=== PATIENT | female | born 1980 | race Two or more races ===

== ENCOUNTER 2019-05-11 15:37 | Emergency (ER) | payer OTHER ==
--- NOTE | 2019-05-11 16:33 | PDOC ---
History of Present Illness - General Chief Complaint: Chest Pain Stated Complaint: CP Time Seen by Provider: 05/11/19 15:52 - History of Present Illness Initial Comments: The pt is a 38F w/ a history of bipolar disorder (seroquel) who presents for evaluation of auditory hallucinations and right sided chest pain. The pain is ' not too bad', non-radiating, constant since yesterday, worse with touch, and not alleviated by the Naproxen that she tried earlier today. The pt has not had pain like this before, denies OCPs, denies history of DVT/PE, denies recent travel. She states that she was hearing voices in her apartment, did not feel safe there anymore, and was found wandering by either EMS or another person who called EMS. The pt denies fevers/chills, trouble breathing, N/V, abdominal pain, or changes in sensation. Denies SI/HI. 05/11/19 16:28 Past History - Past Medical History Allergies/Adverse Reactions: Allergies Allergy/AdvReac Type Severity Reaction Status Date / Time No Known Allergies Allergy Verified 05/11/19 16:47 Home Medications: Ambulatory Orders Quetiapine Fumarate [Seroquel -] 25 mg PO HS 05/11/19 Review of Systems - Review of Systems Able to Perform ROS?: Yes Comments:: GENERAL/CONSTITUTIONAL: No fever or chills HEAD, EYES, EARS, NOSE AND THROAT: No change in vision. No change in hearing. No sore throat CARDIOVASCULAR: No shortness of breath RESPIRATORY: Denies cough, hemoptysis GASTROINTESTINAL: No nausea, vomiting, diarrhea or constipation GENITOURINARY: No dysuria, frequency, or change in urination MUSCULOSKELETAL: No joint or muscle swelling or pain. No neck or back pain SKIN: No rash NEUROLOGIC: No headache, vertigo, loss of consciousness, or change in strength/ sensation ENDOCRINE: No increased thirst. No abnormal weight change HEMATOLOGIC/LYMPHATIC: No anemia, easy bleeding, or history of blood clots ALLERGIC/IMMUNOLOGIC: No hives or skin allergy PSYCH: Denies SI;HI; Endorses AH; Denies VH 05/11/19 16:27 Is the patient limited [place] proficient: No *Physical Exam - Vital Signs 05/11/19 16:35 - Physical Exam GENERAL: Awake, alert, and oriented to person/place/time, appears tearful HEAD: No signs of trauma, normocephalic, atraumatic EYES: PERRLA, EOMI, sclera anicteric, conjunctiva clear ENT: Hearing grossly normal, nares patent, oropharynx clear without exudates. Moist mucosa LUNGS: No distress, speaks in full sentences, clear to auscultation bilaterally CHEST: Reproducible R anterior thoracic wall pain HEART: Regular rate and rhythm, normal S1 and S2, no murmurs appreciated, peripheral pulses normal and equal bilaterally ABDOMEN: Soft, nontender, normoactive bowel sounds. No guarding, no rebound EXTREMITIES: Normal inspection, Normal range of motion, no edema. No clubbing or cyanosis NEUROLOGICAL: Cranial nerves II through XII grossly intact. Normal speech, normal gait, no focal sensorimotor deficits SKIN: Warm, Dry Psych Appearance: Well kempt Behavior: Sad, poor eye contact, in no acute distress Mood: Sad/scared Affect: blunted Mood is congruent with affect Speech: Appropriate rate, quantity and volume Thought process: Tangential Thought content: Worried about having a place to stay, being safe at home, and worried about chest pain. Denies SI/HI. 05/11/19 16:27 ED Treatment Course - LABORATORY CBC & Chemistry Diagram: 05/11/19 17:34 05/11/19 17:34 Medical Decision Making - Medical Decision Making The pt is a 38F w/ a history of bipolar disorder (seroquel) who presents for evaluation of auditory hallucinations and right sided chest pain. She also states ED Course Labs sent 1:[address] Cancino for evaluation, call placed awaiting call back ECG CXR 05/11/19 16:[address] Kc, he will evaluate the pt tomorrow AM ECG w/ NSR; HR 66; QTc 413; no axis deviation; no FER 05/11/19 18:05 No leukocytosis No anemia Lyes unremarkable LFTs wnl No DIAN 05/11/19 18:29 Salicylate, Acetaminophen neg Regular diet ordered 05/11/19 19:14 Utox neg Pt pending AM psych eval Pt signed out to night team 05/12/19 02:01 Discharge - Discharge Information Problems reviewed: Yes Clinical Impression/Diagnosis: Auditory hallucination Bipolar disorder Qualifiers: Active/Remission status: currently active Current bipolar episode type: depressed Current episode severity: severe Psychotic features: with psychotic features Qualified Code(s): F31.5 - Bipolar disorder, current episode depressed , severe, with psychotic features Condition: Stable - Follow up/Referral - Patient Discharge Instructions - Post Discharge Activity
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
[2019-05-11 16:59] VITALS: TEMP 98.2; BMI 21.5
[2019-05-11 17:53] LABS: BASO % 1.2 % (0-2.0); EOS % 0.8 % (0-4.5); HEMOGLOBIN 14.7 GM/dL (10.7-15.3); LYMPH % 38.1 % (8-40); MCH 29.9 pg (25.7-33.7); MCHC 32.6 g/dl (32.0-36.0); MEAN CELL VOLUME 91.6 fl (80-96); MEAN PLT VOLUME 8.2 fl (7.5-11.1); NEUT % 54.9 % (42.8-82.8); PLATELET COUNT 213 K/MM3 (134-434); RBC 4.91 M/mm3 (3.60-5.2); RDW 12.7 % (11.6-15.6); WHITE BLOOD COUNT 5.7 K/mm3 (4.0-10.0)
[2019-05-11 18:20] LABS: INR 1.02 (0.83-1.09)
[2019-05-11 18:23] LABS: ACTIVATED PTT 34.1 SECONDS (25.2-36.5)
[2019-05-11 18:28] LABS: ALBUMIN 4.7 g/dl (3.4-5.0); ALK PHOS 100 U/L (45-117); ANION GAP 5 MMOL/L (8-16); BILIRUBIN,TOTAL 0.4 mg/dL (0.2-1); BLOOD UREA NITROGEN 13.3 mg/dL (7-18); CALCIUM 9.6 mg/dL (8.5-10.1); CHLORIDE 109 mmol/L (98-107); CO2 28 mmol/L (21-32); CREATININE 0.7 mg/dL (0.55-1.3); GLUCOSE,RANDOM 80 mg/dL (74-106); SGOT/AST 19 U/L (15-37); SGPT/ALT 17 U/L (13-61); SODIUM 142 mmol/L (136-145); TOT PROT 7.6 g/dl (6.4-8.2)
[2019-05-11 19:39] LABS: EPI CELLS 4.2 /HPF (0-5/HPF); HYALINE CASTS 2 /lpf (0-8); PH,URINE 7.5 (5.0-8.0); URINE APPEARANCE TURBID; URINE BACTERIA 18.2 /hpf (NEGATIVE); URINE BILIRUBIN NEGATIVE (NEGATIVE); URINE COLOR YELLOW; URINE GLUCOSE (UA) NEGATIVE (NEGATIVE); URINE KETONE NEGATIVE (NEGATIVE); URINE LEUK ESTERASE 1+ (NEGATIVE); URINE NITRITE NEGATIVE (NEGATIVE); URINE PROTEIN NEGATIVE (NEGATIVE); URINE RBC 1 /hpf (0-4); URINE WBC 12 /hpf (0-5)
[2019-05-11 20:12] LABS: COCAINE, UR NEGATIVE ng/ml (CUTOFF=300); METHADONE, UR NEGATIVE ng/ml (CUTOFF=300); OPIATES, URI NEGATIVE ng/ml (CUTOFF=300); PHENCYCLIDINE,URINE NEGATIVE ng/ml (CUTOFF=25); URINE AMPHETAMINES NEGATIVE ng/ml (CUTOFF=500); URINE BARBITURATES NEGATIVE ng/ml (CUTOFF=200); URINE BENZODIAZEPINES NEGATIVE ng/ml (CUTOFF=200)
[2019-05-11] MEDS ORDERED: QUEtiapine FUMARATE 25 MG TABLET (FP) PO ONE (22:15)
[2019-05-11] MEDS ORDERED: QUEtiapine FUMARATE 25 MG TABLET (FP) ONE (22:49)
[2019-05-12 06:10] VITALS: BP 115/85; PULSE 63
--- NOTE | 2019-05-12 07:42 | PDOC ---
*Physical Exam - Vital Signs Last Vital Signs Temp Pulse Resp BP Pulse Ox 98.2 F 63 15 115/85 97 05/11/19 16:57 05/12/19 06:09 05/12/19 06:09 05/12/19 06:09 05/12/19 06:09 - Physical Exam Neuro: she was minimally responsive. Appears to be distracted, likely from auditory hallucinations. Will reassess 05/12/19 07:42 General Appearance: Yes: Nourished, Thin HEENT: positive: EOMI, CATHERINE, Normal ENT Inspection, Pharynx Normal Neck: positive: Trachea midline, Supple Respiratory/Chest: positive: Lungs Clear Cardiovascular: positive: Regular Rhythm, Regular Rate, S1, S2. negative: Murmur, Gallop/S3, Gallop/S4 Vascular Pulses: Dorsalis-Pedis (R): 2+, Doralis-Pedis (L): 2+ ED Treatment Course - LABORATORY CBC & Chemistry Diagram: 05/11/19 17:34 05/11/19 17:34 - ADDITIONAL ORDERS Additional order review: Laboratory Results 05/11/19 05/11/19 05/11/19 17:39 17:39 17:39 Sodium Potassium Chloride Carbon Dioxide Anion Gap BUN Creatinine Est GFR (CKD-EPI)AfAm Est GFR (CKD-EPI)NonAf Random Glucose Calcium Total Bilirubin AST ALT Alkaline Phosphatase Total Protein Albumin TSH Urine Color Yellow Urine Appearance Turbid Urine pH 7.5 Ur Specific [place] 1.024 Urine Protein Negative Urine Glucose (UA) Negative Urine Ketones Negative Urine Blood Negative Urine Nitrite Negative Urine Bilirubin Negative Urine Urobilinogen 1.0 Ur Leukocyte Esterase 1+ H Urine WBC (Auto) 12 Urine RBC (Auto) 1 Urine Casts (Auto) 2 U Epithel Cells (Auto) 4.2 Urine Bacteria (Auto) 18.2 Urine HCG, Qual Negative Opiates Screen Negative Methadone Screen Negative Barbiturate Screen Negative Phencyclidine Screen Negative Ur Amphetamines Screen Negative MDMA (Ecstasy) Screen Negative Benzodiazepines Screen Negative Cocaine Screen Negative U Marijuana (THC) Screen Negative Alcohol, Quantitative 05/11/19 17:34 Sodium 142 Potassium 4.0 Chloride 109 H Carbon Dioxide 28 Anion Gap 5 L BUN 13.3 Creatinine 0.7 Est GFR (CKD-EPI)AfAm 126.49 Est GFR (CKD-EPI)NonAf 109.14 Random Glucose 80 Calcium 9.6 Total Bilirubin 0.4 AST 19 ALT 17 Alkaline Phosphatase 100 Total Protein 7.6 Albumin 4.7 TSH 0.90 Urine Color Urine Appearance Urine pH Ur Specific [place] Urine Protein Urine Glucose (UA) Urine Ketones Urine Blood Urine Nitrite Urine Bilirubin Urine Urobilinogen Ur Leukocyte Esterase Urine WBC (Auto) Urine RBC (Auto) Urine Casts (Auto) U Epithel Cells (Auto) Urine Bacteria (Auto) Urine HCG, Qual Opiates Screen Methadone Screen Barbiturate Screen Phencyclidine Screen Ur Amphetamines Screen MDMA (Ecstasy) Screen Benzodiazepines Screen Cocaine Screen U Marijuana (THC) Screen Alcohol, Quantitative < 3 05/11/19 17:34 RBC 4.91 MCV 91.6 MCHC 32.6 RDW 12.7 MPV 8.2 Neutrophils % 54.9 Lymphocytes % 38.1 Monocytes % 5.0 Eosinophils % 0.8 Basophils % 1.2 - Medications Given in the ED: ED Medications Discontinued Medications Generic Name Dose Route Start Last Admin Trade Name Freq PRN Reason Stop Dose Admin Quetiapine Fumarate 25 mg 05/11/19 22:15 05/11/19 22:52 Seroquel - PO 05/11/19 22:16 25 mg ONCE ONE Administration Medical Decision Making - Medical Decision Making 38 y/o F, pmh of Bipolar disorder noncompliant with meds, presents for auditory hallucination and chest wall pain which was worked up and r/o for acs, is now in the ED for psych evaluation #Auditory hallucinations 2/2 to psychosis vs worsening bipolar Discussed with Dr. Cancino- pt has improved Pt has an outpt psychiatrist that she follows with She has a scheduled visit with her psychiatrist this week. labs reviewed trop neg no white count cxr no acute pathology 05/12/19 07:43 05/12/19 07:44 05/12/19 08:58 05/12/19 12:55 Discharge - Discharge Information Problems reviewed: Yes Clinical Impression/Diagnosis: Auditory hallucination, Atypical chest pain Bipolar disorder Qualifiers: Active/Remission status: currently active Current bipolar episode type: depressed Current episode severity: severe Psychotic features: with psychotic features Qualified Code(s): F31.5 - Bipolar disorder, current episode depressed , severe, with psychotic features Condition: Improved Disposition: HOME - Admission No - Follow up/Referral Referrals: Elinor Cancino MD [Staff Physician] - - Patient Discharge Instructions Patient Printed Discharge Instructions: DI for Bipolar Disorder Additional Instructions: You were seen in the emergency room for hearing voices and chest pain. While you were in the emergency room, we evaluated you with lab work, blood work , imaging including x rays of your chest. We monitored you and treated you with medication and your symptoms improved You will need to follow up with your Psychiatrist as scheduled within 1 week. Please also follow up with your Primary care physician within 1 week Please take all your medications as prescribed Return to the emergency room, if you experience any worsening of your symptoms, chest pain, shortness of breath, suicidal thoughts, depression, or any worsening of your symptoms. - Post Discharge Activity Work/Back to School Note: My Personal Safety Plan
[2019-05-12] MEDS ORDERED: ACETAMINOPHEN 325 MG TABLET (FP) PO ONE (10:31)
[2019-05-12] MEDS ORDERED: ACETAMINOPHEN 325 MG TABLET (FP) ONE (10:33)
--- NOTE | 2019-05-12 12:30 | CON.PSY ---
Psychiatry Consult Chief Complaint: 38 ywera 9olode [id number], mmarried witha history o0f BiPolar Disorder being seen at [facility] [place], o9n Seroquel. Ampomn1w came to ER with Chest and back pain after loifting a Heavy object but appera to bec confused and ? hallucinating. Patient is lot better toery and is able to [id number] to me and .. Denies an6y suicidal ideas or )Plans. Latesha zhang tha5t mando has many socila problemsw with her adopted family and daughter. Symptoms: reports: Anxiety, Somatic Symptoms - Previous Psychiatric Treatment Outpatient: Less than 6 mos ago Inpatient: None - Previous Substance Abuse Treatment Outpatient: None Inpatient: None - Reason for Previous Treatment Reason for Previous Treatment: Biploar Illness - Allergies Allergies: Allergies Allergy/AdvReac Type Severity Reaction Status Date / Time No Known Allergies Allergy Verified 05/11/19 16:47 - Current Living Status Usual Living Arrangement: With Spouse - Current Mental Status Evaluation Appearance: Well Groomed Attitude: Cooperative - Affect Affect: Constrictive Appropriateness: Appropriate to Content - Mood Mood: Anxious - Speech/Language Expressive: Coherent - Psychomotor Activity Psychomotor Activity: Normal - Thought Process Thought Process: Intact - Thought Content Hallucinations: Absent Delusions: Absent - Self Perception Self Perception: No Impairment - Cognition Attention: Alert Orientation: Time Memory, Immediate Recall: Intact Memory, Short Term: 3/3 Memory, Remote with Promptin/3 - Concentration Serial Sevens Intact: Yes Simple Calculations Intact: Yes - Abstraction Proverb Interpretation: Intact Judgement: Minimally Impaired - Insight Insight: Intact - Impulse Control Impulse Control: Good Control - Suicidal Ideation Suicidal Ideation: No - Homicidal Ideation Homicidal Ideation: No Assessment/Plan 1) Patient is clinically stable to be3 discharged in care of her . 2) will see her therapist and Psychiatrist on Wednesday.
--- NOTE | 2019-05-12 14:07 | EKG ---
Test Reason : Blood Pressure : / mmHG Vent. Rate : 066 BPM Atrial Rate : 066 BPM P-R Int : 152 ms QRS Dur : 084 ms QT Int : 394 ms P-R-T Axes : 016 028 031 degrees QTc Int : 413 ms POOR DATA QUALITY, INTERPRETATION MAY BE ADVERSELY AFFECTED NORMAL SINUS RHYTHM NORMAL ECG NO PREVIOUS ECGS AVAILABLE Confirmed by SARAHI ZARAGOZA MD ([id number]) on 05/12/2019 2:07:08 PM Referred By: Confirmed By:SARAHI ZARAGOZA MD
== END 2019-05-12 14:02 | disposition home or self-care (01) ==
LOC: JER 15:37
DX: F31.5 Bipolar disorder, current episode depressed, severe, with psychotic features (principal); R07.89 Other chest pain
CPT/HCPCS: 36415; 71045-TC-FY; 80053; 80307; 81003; 82550; 84443; 84484; 84703; 85025; 85610; 85730; 93005; 93010; 99284-25

== ENCOUNTER 2019-05-13 11:50 | Emergency (ER) | payer OTHER ==
[2019-05-13 12:00] VITALS: BMI 204.8
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
--- NOTE | 2019-05-13 14:40 | EKG ---
Test Reason : Blood Pressure : / mmHG Vent. Rate : 079 BPM Atrial Rate : 079 BPM P-R Int : 128 ms QRS Dur : 076 ms QT Int : 378 ms P-R-T Axes : 027 024 022 degrees QTc Int : 433 ms NORMAL SINUS RHYTHM NORMAL ECG WHEN COMPARED WITH ECG OF 11-MAY-2019 16:00, NO SIGNIFICANT CHANGE WAS FOUND Confirmed by MD SUDARSHAN, SAHRA ([id number]) on 05/13/2019 2:39:54 PM Referred By: Confirmed By:SAHRA HEATON MD
[2019-05-13] MEDS ORDERED: FAMOTIDINE 20 MG/50 ML IVPB 20 MG/50 ML MG IVPB ONE (15:19)
[2019-05-13] MEDS ORDERED: ONDANSETRON 4 MG/2 ML VIAL IVPUSH ONE (15:19)
[2019-05-13] MEDS ORDERED: LACTATED RINGERS SOLUTION 1000 ML INFUS.BAG IV ONE (15:19)
--- NOTE | 2019-05-13 16:48 | CON.PSY ---
Psychiatry Consult Chief Complaint: 38 [place] old female with a Historyof BiPolar vs Schizo- affective disorder being treated at a clinic in [place] came [place] [facility] for acute Psychotic decompensation. Patient began hallucinating and delusuional and unable to engage in any meaningful conversation. appears very preoccupied and displaying affective instabilty ? suicidal. Symptoms: reports: Depressed Mood, Impaired Concentration, Decreased Motivation , Somatic Symptoms, Disorganized/Disruptive Thoughts, Hallucinations - Previous Psychiatric Treatment Outpatient: Less than 6 mos ago Inpatient: Within the last 12 months - Previous Substance Abuse Treatment Outpatient: None Inpatient: None - Reason for Previous Treatment Reason for Previous Treatment: Biploar Illness - Allergies Allergies: Allergies Allergy/AdvReac Type Severity Reaction Status Date / Time No Known Allergies Allergy Verified 05/13/19 12:00 - Current Living Status Usual Living Arrangement: With Spouse - Current Mental Status Evaluation Appearance: Disheveled Attitude: Guarded - Affect Affect: Constrictive Appropriateness: Not Appropriate - Mood Mood: Depressed - Speech/Language Expressive: Coherent - Psychomotor Activity Psychomotor Activity: Hyperactive - Thought Process Thought Process: Circumstantial - Thought Content Hallucinations: Present Type: Auditory Delusions: Present - Self Perception Self Perception: No Impairment - Cognition Attention: Alert Orientation: Time Memory, Short Term: 2/3 Memory, Remote with Promptin/3 - Concentration Serial Sevens Intact: No Simple Calculations Intact: Yes - Abstraction Proverb Interpretation: Impaired Judgement: Minimally Impaired - Insight Insight: Impaired - Impulse Control Impulse Control: Moderately Impaired - Suicidal Ideation Suicidal Ideation: No - Homicidal Ideation Homicidal Ideation: No Assessment/Plan 1) Patient is acuely Psychotic and needs In patient psych Hospitalization to stablise her Mental status.
[2019-05-13 17:30] LABS: BASO % 0.4 % (0-2.0); EOS % 0.2 % (0-4.5); HEMATOCRIT 43.1 % (32.4-45.2); HEMOGLOBIN 14.4 GM/dL (10.7-15.3); LYMPH % 27.7 % (8-40); MCH 30.2 pg (25.7-33.7); MCHC 33.4 g/dl (32.0-36.0); MEAN CELL VOLUME 90.5 fl (80-96); MEAN PLT VOLUME 7.4 fl (7.5-11.1); MONO % 4.3 % (3.8-10.2); NEUT % 67.4 % (42.8-82.8); PLATELET COUNT 221 K/MM3 (134-434); RBC 4.77 M/mm3 (3.60-5.2); RDW 12.9 % (11.6-15.6); WHITE BLOOD COUNT 5.4 K/mm3 (4.0-10.0)
[2019-05-13 17:42] LABS: COCAINE, UR NEGATIVE ng/ml (CUTOFF=300); METHADONE, UR NEGATIVE ng/ml (CUTOFF=300); OPIATES, URI NEGATIVE ng/ml (CUTOFF=300); PHENCYCLIDINE,URINE NEGATIVE ng/ml (CUTOFF=25); URINE AMPHETAMINES NEGATIVE ng/ml (CUTOFF=500); URINE BARBITURATES NEGATIVE ng/ml (CUTOFF=200); URINE BENZODIAZEPINES NEGATIVE ng/ml (CUTOFF=200)
[2019-05-13 17:52] LABS: ANION GAP 8 MMOL/L (8-16); BLOOD UREA NITROGEN 13.4 mg/dL (7-18); CALCIUM 9.5 mg/dL (8.5-10.1); CHLORIDE 109 mmol/L (98-107); CO2 25 mmol/L (21-32); CREATININE 0.7 mg/dL (0.55-1.3); GLUCOSE,RANDOM 101 mg/dL (74-106); SODIUM 142 mmol/L (136-145)
--- NOTE | 2019-05-14 00:17 | PDOC ---
*Physical Exam - Vital Signs Last Vital Signs Temp Pulse Resp BP Pulse Ox 98.8 F 83 19 132/68 100 05/13/19 17:50 05/13/19 17:50 05/13/19 17:50 05/13/19 17:50 05/13/19 17:50 - Physical Exam 05/14/19 00:19 Patient signed out by resident Dr. Szymanski In short patient is a 38 y/o female w/ decompensation of bipolar, schizoaffective disorder, suicidal and violent behavior. Patient has been 2PCed by Dr. Cancino and Dr. Badillo for involuntary psychiatric hold. Currently on 1:1 [facility] ([phone]): call at [address] [facility]: follow up on faxed requested labs results (etoh, acetameniphen, salycilate), sent during day shift on 05/13/19 Patient signed out to resident Dr. Castro for continued care ED Treatment Course - LABORATORY CBC & Chemistry Diagram: 05/13/19 17:14 05/13/19 17:14 - ADDITIONAL ORDERS Additional order review: Laboratory Results 05/13/19 05/13/19 05/13/19 17:20 17:14 17:14 Sodium Potassium Chloride Carbon Dioxide Anion Gap BUN Creatinine Est GFR (CKD-EPI)AfAm Est GFR (CKD-EPI)NonAf Random Glucose Calcium Serum , Qual Negative Salicylates < 1.7 L Opiates Screen Negative Methadone Screen Negative Acetaminophen <2.0 Barbiturate Screen Negative Phencyclidine Screen Negative Ur Amphetamines Screen Negative MDMA (Ecstasy) Screen Negative Benzodiazepines Screen Negative Cocaine Screen Negative U Marijuana (THC) Screen Negative Alcohol, Quantitative 05/13/19 17:14 Sodium 142 Potassium 4.0 Chloride 109 H Carbon Dioxide 25 Anion Gap 8 BUN 13.4 Creatinine 0.7 Est GFR (CKD-EPI)AfAm 126.49 Est GFR (CKD-EPI)NonAf 109.14 Random Glucose 101 Calcium 9.5 Serum , Qual Salicylates Opiates Screen Methadone Screen Acetaminophen Barbiturate Screen Phencyclidine Screen Ur Amphetamines Screen MDMA (Ecstasy) Screen Benzodiazepines Screen Cocaine Screen U Marijuana (THC) Screen Alcohol, Quantitative < 3 05/13/19 17:14 RBC 4.77 MCV 90.5 MCHC 33.4 RDW 12.9 MPV 7.4 L Neutrophils % 67.4 D Lymphocytes % 27.7 D Monocytes % 4.3 Eosinophils % 0.2 Basophils % 0.4 - Medications Given in the ED: ED Medications Discontinued Medications Generic Name Dose Route Start Last Admin Trade Name Mateo PRN Reason Stop Dose Admin Famotidine/Sodium Chloride 20 mg in 50 mls @ 100 mls/hr 05/13/19 15:19 15:23 Pepcid 20 Mg Premixed Ivpb - IVPB 05/13/19 15:48 Not Given ONCE ONE Lactated Ringer's 1,000 ml 05/13/19 15:19 05/13/19 15:23 Lactated Ringers Solution IV 05/13/19 15:20 Not Given ONCE ONE Ondansetron HCl 4 mg 05/13/19 15:19 05/13/19 15:24 Zofran Injection IVPUSH 05/13/19 15:20 Not Given ONCE ONE Discharge - Discharge Information Problems reviewed: Yes Clinical Impression/Diagnosis: Atypical chest pain Bipolar disorder Qualifiers: Active/Remission status: currently active Current bipolar episode type: depressed Current episode severity: severe Psychotic features: with psychotic features Qualified Code(s): F31.5 - Bipolar disorder, current episode depressed , severe, with psychotic features Schizoaffective disorder Qualifiers: Schizoaffective disorder type: bipolar Qualified Code(s): F25.0 - Schizoaffective disorder, bipolar type Condition: Stable Disposition: TRANSFER ACUTE CARE/OTHER HOSP - Follow up/Referral - Patient Discharge Instructions - Post Discharge Activity
--- NOTE | 2019-05-14 08:25 | PDOC ---
*Physical Exam - Vital Signs Last Vital Signs Temp Pulse Resp BP Pulse Ox 98.2 F 85 14 112/70 100 05/14/19 01:00 05/14/19 01:00 05/14/19 01:00 05/14/19 01:00 05/13/19 17:50 ED Treatment Course - LABORATORY CBC & Chemistry Diagram: 05/13/19 17:14 05/13/19 17:14 - ADDITIONAL ORDERS Additional order review: Laboratory Results 05/13/19 17:20 Salicylates < 1.7 L Acetaminophen <2.0 05/13/19 17:14 RBC 4.77 MCV 90.5 MCHC 33.4 RDW 12.9 MPV 7.4 L Neutrophils % 67.4 D Lymphocytes % 27.7 D Monocytes % 4.3 Eosinophils % 0.2 Basophils % 0.4 - Medications Given in the ED: ED Medications Discontinued Medications Generic Name Dose Route Start Last Admin Trade Name Freq PRN Reason Stop Dose Admin Famotidine/Sodium Chloride 20 mg in 50 mls @ 100 mls/hr 05/13/19 15:19 15:23 Pepcid 20 Mg Premixed Ivpb - IVPB 05/13/19 15:48 Not Given ONCE ONE Lactated Ringer's 1,000 ml 05/13/19 15:19 05/13/19 15:23 Lactated Ringers Solution IV 05/13/19 15:20 Not Given ONCE ONE Ondansetron HCl 4 mg 05/13/19 15:19 05/13/19 15:24 Zofran Injection IVPUSH 05/13/19 15:20 Not Given ONCE ONE Medical Decision Making - Medical Decision Making 05/14/19 08:25 Patient signed out by resident Dr. Morin 38yo F with decompensation of bipolar, schizoaffective disorder, suicidal and violent behavior. Patient has been 2PCed by Dr. Cancino and Dr. Badillo for involuntary psychiatric hold. Currently on 1:1. Pt seen and assessed at bedside. Calm, cooperative, no complaints at this time. [facility] ([phone]): call at 0830 for Robina in [facility]: on wait list for bed, follow up on faxed requested labs results (etoh, acetameniphen, salycilate), sent during day shift on Robina at [facility] called. Per Robina, pt has bed but needs insurance authorization prior to accepting pt. executive meeting manager working on authorization and will call us back. Pending auth, call back Robina to initiate transfer. 05/14/19 15:07 Called Robina again. Robina says bed still available but has not heard back about authorization from executive meeting manager. executive meeting manager Cathryn vences - working on authorization. 05/14/19 15:39 Spoke with rn case manager hospice. has spoken with Robina and pt has been accepted and can be transferred now. Ambulance will be here at 1600. 05/14/19 15:51 Daily dose of Seroquel given. 05/14/19 16:37 EMS here for transfer. Discharge - Discharge Information Problems reviewed: Yes Clinical Impression/Diagnosis: Atypical chest pain Bipolar disorder Qualifiers: Active/Remission status: currently active Current bipolar episode type: depressed Current episode severity: severe Psychotic features: with psychotic features Qualified Code(s): F31.5 - Bipolar disorder, current episode depressed , severe, with psychotic features Schizoaffective disorder Qualifiers: Schizoaffective disorder type: bipolar Qualified Code(s): F25.0 - Schizoaffective disorder, bipolar type Condition: Stable Disposition: TRANSFER ACUTE CARE/OTHER HOSP - Admission No - Follow up/Referral - Patient Discharge Instructions - Post Discharge Activity
[2019-05-14] MEDS ORDERED: QUEtiapine FUMARATE 25 MG TABLET (FP) PO ONE (15:51)
[2019-05-14] MEDS ORDERED: QUEtiapine FUMARATE 25 MG TABLET (FP) ONE ×2 (15:52→16:02)
[2019-05-14 16:50] VITALS: TEMP 98.7
[2019-05-14 16:51] VITALS: BP 134/80; PULSE 130
== END 2019-05-14 16:45 | disposition short-term general hospital (02) ==
LOC: JER 11:50
DX: R07.9 Chest pain, unspecified (principal); F31.5 Bipolar disorder, current episode depressed, severe, with psychotic features; F20.0 Paranoid schizophrenia
CPT/HCPCS: 36415; 80048; 80307; 84703; 85025; 93005; 93010; 99285-25

== ENCOUNTER 2020-04-08 11:36 | Emergency (ER) | payer OTHER | END 2020-04-08 12:24 | disposition home or self-care (01) | LOC: JVIRT 11:36 | DX: Z03.818 Encounter for observation for suspected exposure to other biological agents ruled out (principal) | CPT/HCPCS: C9803; Q3014-GT; U0003 ==